=== PATIENT | male | born 1940 | race Caucasian/White ===

== ENCOUNTER 2018-03-13 09:05 | Day surgery (SDC) | payer MEDICARE, MEDICAID ==
[2018-03-12 14:53] LABS: BASOPHILS % (AUTO) 0 % (0-1); EOSINOPHILS # (AUTO) 0.3 X10'3 (0-0.9); EOSINOPHILS % (AUTO) 3.5 % (0-6); HEMATOCRIT 32.2 % (42.0-52.0); HEMOGLOBIN 10.7 g/dl (14.0-17.9); LYMPHOCYTES # (AUTO) 1.4 X10'3 (1.1-4.8); LYMPHOCYTES % (AUTO) 18.8 % (21-51); MEAN CORPUSCULAR HEMOGLOBIN 31.1 PG (27.0-31.0); MEAN CORPUSCULAR HGB CONC 33.2 % (33.0-36.5); MEAN CORPUSCULAR VOLUME 93.8 FL (78-98); MEAN PLATELET VOLUME 7.8 FL (7.4-10.4); MONOCYTES # (AUTO) 0.6 X10'3 (0-0.9); MONOCYTES % (AUTO) 7.5 % (2-12); NEUTROPHILS # (AUTO) 5.1 X10'3 (1.8-7.7); NEUTROPHILS % (AUTO) 70.2 % (42-75); PLATELET COUNT 206 X10'3 (140-440); RED BLOOD COUNT 3.43 X10'6 (4.70-6.10); RED CELL DISTRIBUTION WIDTH 12.9 % (11.5-14.5); WHITE BLOOD COUNT 7.3 X10'3 (4.5-11.0)
[2018-03-12 15:02] LABS: ALBUMIN 3.3 G/DL (3.4-5.0); ANION GAP 6 (8-16); BLOOD UREA NITROGEN 34 MG/DL (7-18); BUN/CREATININE RATIO 26.6 (5.4-32.0); CALCIUM 8.8 MG/DL (8.5-10.1); CHLORIDE 106 MMOL/L (99-107); CREATININE 1.28 MG/DL (0.60-1.10); GLUCOSE 72 MG/DL (70-104); POTASSIUM 4.2 MMOL/L (3.5-5.1); SODIUM 144 MMOL/L (135-145); TOTAL CARBON DIOXIDE 32.5 MMOL/L (24-32); eGFR 55 ML/MIN
[2018-03-12 15:06] LABS: PARTIAL THROMBOPLASTIN TIME 30 SECONDS (22-32); PROTHROMBIN TIME 10.6 SECONDS (9.0-12.0)
[2018-03-13] VITALS (12 sets, daily range): BP systolic 99–127; BP diastolic 58–89
[~2018-03-13] VITALS: Ht 177.8 cm; Wt 60.0 kg
[2018-03-13] MEDS ORDERED: LORazepam 0.5 MG tablet PO PRN (09:25)
[2018-03-13] MEDS ORDERED: diphenhydrAMINE 25mg capsule PO PRN (09:25)
[2018-03-13] MEDS ORDERED: normal saline 1000ml 1,000 ML IV SCH (09:25)
[2018-03-13] MEDS ORDERED: LIDOcaine 1% 30ml preserv. free vial ONE (10:31)
[2018-03-13] MEDS ORDERED: nitroGLYCERIN-Tridil 50MG/D5W 250 ML IV ONE (10:31)
[2018-03-13] MEDS ORDERED: heparin 1,000unit/ml 10ml vial 10 ML ONE (10:31)
[2018-03-13] MEDS ORDERED: iohexol 350MG/ML 100ml bottle IV ONE (10:32)
[2018-03-13] MEDS ORDERED: iohexol 350 MG/ML 50ML vial IV ONE ×2 (10:32→11:20)
[2018-03-13] MEDS ORDERED: CLOP75TA35 PO (10:37)
[2018-03-13] MEDS ORDERED: CARV-50 PO (10:37)
[2018-03-13] MEDS ORDERED: ATOR40TA PO (10:37)
[2018-03-13] MEDS ORDERED: TRAM50TA2 PO (10:37)
[2018-03-13] MEDS ORDERED: MELO-102 PO (10:37)
[2018-03-13] MEDS ORDERED: PREG225C PO (10:37)
[2018-03-13] MEDS ORDERED: DIP0.05CR TP (10:37)
[2018-03-13] MEDS ORDERED: LORA10TA7 PO (10:37)
[2018-03-13] MEDS ORDERED: Clindamycin TP (10:37)
[2018-03-13] MEDS ORDERED: NITR0.4T51 SL (10:37)
[2018-03-13] MEDS ORDERED: fentaNYL/PF 50MCG/1 ML 2ML syringe ONE (10:56)
[2018-03-13] MEDS ORDERED: midazolam 2 mg/2 ml injection ONE (10:56)
== END 2018-03-13 21:47 | disposition home or self-care (01) ==
LOC: SSTAY O 09:05
PROVIDERS: ATTEND Internal Medicine Cardiovascular Disease
DX: I25.118 Atherosclerotic heart disease of native coronary artery with other forms of angina pectoris (principal); E78.5 Hyperlipidemia, unspecified; I10 Essential (primary) hypertension; I08.0 Rheumatic disorders of both mitral and aortic valves; I48.91 Unspecified atrial fibrillation; M19.90 Unspecified osteoarthritis, unspecified site; M79.7 Fibromyalgia; H54.61 Unqualified visual loss, right eye, normal vision left eye; Z86.74 Personal history of sudden cardiac arrest; Z95.5 Presence of coronary angioplasty implant and graft; Z79.2 Long term (current) use of antibiotics; Z79.891 Long term (current) use of opiate analgesic; Z87.891 Personal history of nicotine dependence; Z90.49 Acquired absence of other specified parts of digestive tract; Z87.442 Personal history of urinary calculi; Z98.52 Vasectomy status; Z79.899 Other long term (current) drug therapy; Z98.890 Other specified postprocedural states
CPT/HCPCS: 36415; 80048; 85025; 85610; 85730; 93005; 93458; 99152; 99153; A6257; C1760; J1644; J2250; J3010; J3490; J7030; Q9967; C1769; Q0163